=== PATIENT | male | born 1995 | race African-American/Black ===

== ENCOUNTER 2019-12-20 13:20 | Emergency (ER) | payer OTHER ==
[~2019-12-20] VITALS: Ht 165.1 cm; Wt 54.8 kg
[2019-12-20 13:21] VITALS: BP 131/86
[2019-12-20] MEDS ORDERED: AMOX500C PO (13:56)
== END 2019-12-20 14:00 | disposition home or self-care (01) ==
LOC: M ED 13:20
DX: J02.0 Streptococcal pharyngitis (principal)